=== PATIENT | female | born 1970 | race Caucasian/White ===

== ENCOUNTER 2016-09-29 20:42 | Emergency (ER) | payer MEDICARE, MEDICAID ==
[~2016-09-29] VITALS: Ht 162.6 cm; Wt 70.8 kg
[2016-09-29] MEDS ORDERED: CHOLESTYRAMINE PO (22:03)
[2016-09-29] MEDS ORDERED: PROVENTIL HFA6.7 GM INH (22:04)
== END 2016-09-29 23:50 | disposition short-term general hospital (02) ==
LOC: ER 20:42
DX: R56.9 Unspecified convulsions (principal); K82.9 Disease of gallbladder, unspecified; Z79.899 Other long term (current) drug therapy; Z88.2 Allergy status to sulfonamides; Q28.2 Arteriovenous malformation of cerebral vessels
CPT/HCPCS: G0477; Q9967